=== PATIENT | male | born 1945 | race Two or more races ===

== ENCOUNTER 2020-01-05 11:04 | Inpatient (IN) | payer OTHER ==
[~2020-01-05] VITALS: Ht 175.3 cm; Wt 746.2 kg
--- NOTE | 2020-01-05 12:22 | NUR ---
SE RECIBE MASCULINO DE 74 ANOS ALERTA Y ORIENTADO POR PATITO DIMENSIONES, ESTABLE AL MOMENTO. REFIERE QUE ES COVID-19 + DESDE , VIENE PORQUE ESTABA SATURANDO 89 EN [place] HOGAR. SE LE LATRICE SV Y SE UBICA EN AREA DE COVID.
[2020-01-05] MEDS ORDERED: COZAAR25 MG (12:26)
[2020-01-05] MEDS ORDERED: ADULT LOW DOSE81 M1 (12:27)
[2020-01-05] MEDS ORDERED: CRESTOR5 MG (12:27)
[2020-01-05] MEDS ORDERED: ZINC50 M1 (12:28)
[2020-01-05] MEDS ORDERED: OCUVITE LUTEIN1 EAC2 (12:28)
[2020-01-05] MEDS ORDERED: AZITHROMYCIN500 MG (12:29)
[2020-01-05] MEDS ORDERED: ZETIA10 MG (12:35)
--- NOTE | 2020-01-05 12:59 | NUR ---
PTE ES EVALUADO POR DRA. RAMESH QUIEN ORDENA TRATAMIENTO. RN. Alistair SCHAFFER EDUCA A PTE SOBRE ORDENES MEDICAS Y REFIERE COMPRENDER. CANALIZA Y COLECTAN MUESTRAS DE LABORATORIO BAJO MEDIDAS ASEPTICAS Y ADMINISTRA MEDICAMENTOS NEHEMIAH ORDEN MEDICAS LOS CUALES PTE NO PRESENTA REACCION ADVERSA. PTE CON ABGS NOTIFICADOS A PERSONAL DE TERAPIA RESPIRATORIA, EN ESPERA DE REALIZACION DE MUESTRA. PENDIENTE CT CHEST.
--- NOTE | 2020-01-05 14:01 | NUR ---
SE NOTIFICA A MS. VARGASBETZAIDA NGUYỄN'S PENDIENTES.
--- NOTE | 2020-01-05 15:51 | NUR ---
SE RECIBE PTE LA CUAL SE ENCUENTRA EN CHATO ALERTA Y ORIENTADA POR 3, LA CUAL SE ENCUENTRA CON AREA DE VENOPUNCION PATENTE Y THERESA DE EDEMA. PTE SE ENCUENTRA PEND A REALIZAR CT DE PECHO.
== END 2020-01-13 16:26 | disposition home or self-care (01) | DRG 177 ==
LOC: ER 11:04 → MEDJ 20:22 → SEC-K 20:22 → MEDJ 22:23
PROVIDERS: ADMIT Internal Medicine; ATTEND Internal Medicine
PROC: 4A033R1 Measurement of Arterial Saturation, Peripheral, Percutaneous Approach (ICD-10-PCS; principal; 2020-01-05)
PROC: 3E0F7SF Introduction of Other Gas into Respiratory Tract, Via Natural or Artificial Opening (ICD-10-PCS; 2020-01-05)
PROC: 4A12X4Z Monitoring of Cardiac Electrical Activity, External Approach (ICD-10-PCS; 2020-01-06)
DX: U07.1 COVID-19 (principal); J12.89 Other viral pneumonia; R09.02 Hypoxemia; E11.9 Type 2 diabetes mellitus without complications; I10 Essential (primary) hypertension; Z95.1 Presence of aortocoronary bypass graft